=== PATIENT | female | born 2000 | race Two or more races ===

== ENCOUNTER 2023-07-31 16:38 | Observation (INO) | payer MEDICAID, OTHER ==
[2023-07-31] MEDS ORDERED: PREN-96 PO (18:15)
== END 2023-07-31 18:22 | disposition home or self-care (01) ==
LOC: LDRP 16:38
PROVIDERS: ADMIT Obstetrics & Gynecology; ATTEND Obstetrics & Gynecology
DX: O24.419 Gestational diabetes mellitus in pregnancy, unspecified control (principal); Z3A.39 39 weeks gestation of pregnancy; Z91.018 Allergy to other foods
CPT/HCPCS: 59025; 76818; 81002; 82948; 82962; 94760; G0378

== ENCOUNTER 2023-08-07 12:10 | Observation (INO) | payer MEDICAID ==
[~2023-08-07 12:10] MED LIST: PREN-96 PO
== END 2023-08-07 13:25 | disposition home or self-care (01) ==
LOC: LDRP 12:10 → UNDOADMOB 12:10 → LDRP 12:12 → UNDODISOB 13:25
PROVIDERS: ADMIT Obstetrics & Gynecology; ATTEND Obstetrics & Gynecology
DX: O24.419 Gestational diabetes mellitus in pregnancy, unspecified control (principal); Z3A.36 36 weeks gestation of pregnancy
CPT/HCPCS: 59025; 76818; 81002; 82948; 82962; 94760; G0378

== ENCOUNTER 2023-08-14 07:51 | Observation (INO) | payer MEDICAID ==
[~2023-08-14] VITALS: Ht 165.1 cm; Wt 117.0 kg
[2023-08-14] MEDS ORDERED: NIF10C PO (09:19)
== END 2023-08-14 09:30 | disposition home or self-care (01) ==
LOC: LDRP 07:58 → UNDOADMOB 07:58 → LDRP 08:03
PROVIDERS: ADMIT Obstetrics & Gynecology; ATTEND Obstetrics & Gynecology
DX: O24.419 Gestational diabetes mellitus in pregnancy, unspecified control (principal); Z3A.37 37 weeks gestation of pregnancy
CPT/HCPCS: 59025; 76818; 81002; 82948; 94760; G0378

== ENCOUNTER 2023-08-16 13:00 | Observation (INO) | payer MEDICAID | END 2023-08-16 17:37 | disposition home or self-care (01) | LOC: LDRP 13:00 | PROVIDERS: ADMIT Obstetrics & Gynecology; ATTEND Obstetrics & Gynecology | DX: O24.419 Gestational diabetes mellitus in pregnancy, unspecified control (principal); Z3A.37 37 weeks gestation of pregnancy | CPT/HCPCS: 59025; 76818; 81002; 82948; 82962; 94760; G0378 ==

== ENCOUNTER 2023-08-20 08:05 | Observation (INO) | payer MEDICAID | END 2023-08-20 10:04 | disposition home or self-care (01) | LOC: LDRP 08:05 → UNDOADMOB 08:05 → LDRP 08:19 → UNDODISOB 10:04 | PROVIDERS: ADMIT Obstetrics & Gynecology; ATTEND Obstetrics & Gynecology | DX: O24.419 Gestational diabetes mellitus in pregnancy, unspecified control (principal); O26.893 Other specified pregnancy related conditions, third trimester; N89.8 Other specified noninflammatory disorders of vagina; Z3A.38 38 weeks gestation of pregnancy; Z91.018 Allergy to other foods | CPT/HCPCS: 59025; 76818; 81002; 82948; 82962; G0378 ==

== ENCOUNTER 2023-08-25 19:04 | Inpatient (IN) | payer MEDICAID ==
[~2023-08-25] VITALS: Ht 165.1 cm; Wt 117.9 kg
[2023-08-25] MEDS ORDERED: LIDOCAINE 2%HCL (LOCAL ANESTH.) INJ 20ML MDV IJ PRN (19:30)
[2023-08-25] MEDS ORDERED: NALBUPHINE HCL 10 MG/1ml INJECTION IV PRN (19:30)
[2023-08-25] MEDS ORDERED: ONDANSETRON HCL 4 MG/2 ML VIAL IV PRN (20:00)
[2023-08-25 20:09] LABS: Basophils # (auto) 0 10 ^3/uL (0-0.2); Basophils % (auto) 0.2 % (0.0-2.0); Eosinophils # (auto) 0 10 ^3/uL (0-0.8); Eosinophils % (auto) 0.5 % (0.0-7.0); Hematocrit 28.5 % (36.0-46.0); Hemoglobin 9.7 g/dL (12.2-16.2); Lymphocytes # (auto) 1.7 10 ^3/uL (0.4-5.4); Lymphocytes % (auto) 16.5 % (10.0-50.0); Mean Corpuscular Hemoglobin 27.3 pg (28.0-32.0); Mean Corpuscular Volume 80.3 fL (80.0-100.0); Monocytes # (auto) 0.5 10 ^3/uL (0-1.3); Monocytes % (auto) 4.7 % (0.0-12.0); Neutrophils # (auto) 7.9 10 ^3/uL (1.6-8.6); Neutrophils % (auto) 78.1 % (37.0-80.0); Red Blood Cells 3.55 10^6/uL (4.0-5.20); Red Cell Distribution Width 15.8 % (11.8-14.3); White Blood Cell 10.1 10^3/uL (4.4-10.8)
[2023-08-25] MEDS: LACTATED RINGER'S 1,000 ML IV SCH (20:26)
[2023-08-25 20:27] LABS: INR 0.93 (0.9-1.15); Partial Thromboplastin Time 26.2 SEC (24.5-34.5); Prothrombin Time 9.9 sec (9.3-11.8)
[2023-08-25 20:30] LABS: Alanine Aminotransferase 10 U/L (7-40); Albumin 3.5 g/dL (3.2-4.8); Alkaline Phosphatase 129 U/L (46-116); Anion Gap 10 (5-15); Aspartate Aminotransferase 11 U/L (13-40); Bilirubin, Total 0.3 mg/dL (0.2-1.0); Calcium 9.1 mg/dL (8.7-10.4); Carbon Dioxide 20 mmol/L (20-30); Chloride 108 mmol/L (98-107); Glucose 98 mg/dL (74-106); Potassium 3.5 mmol/L (3.5-5.1); Sodium 138 mmol/L (136-145); Total Protein 6.3 g/dL (5.7-8.2)
[2023-08-25 20:31] LABS: BUN/Creatinine Ratio 8.8 (10.0-20.0); Blood Urea Nitrogen < 5 mg/dL (9-23)
[2023-08-25 20:34] LABS: Urine Bacteria FEW /hpf (None Seen); Urine Blood Negative /uL (Negative); Urine Clarity Turbid (Clear); Urine Color Yellow (Yellow); Urine Mucus FEW (None Seen); Urine Protein, UAD 1+ (Negative); Urine Specific Gravity 1.032 (1.001-1.035); Urine Urobilinogen Normal (Negative); Urine WBC 7 /hpf (0 - 5); Urine pH 5.5 (5.0-9.0)
[2023-08-25 20:47] LABS: Amphetamine Screen, Urine Neg (NEGATIVE); Barbiturate Scree,Urine Neg (NEGATIVE); Benzodiazephine Screen, Urine Neg (NEGATIVE); Cannabinoid Screen, Urine Neg (NEGATIVE); Cocaine Screen, Urine Neg (NEGATIVE); Opiate Scree,Urine Neg (NEGATIVE); Phencyclidine Screen, Urine Neg (NEGATIVE)
[2023-08-25] MEDS: miSOPROStol 50 MCG per PRE-CUT 1/2 TAB PO PRN (21:00)
[2023-08-25] MEDS ORDERED: ACCU-CHEK COMFORT CURVE STRIP VI SCH (22:00)
[2023-08-25] MEDS ORDERED: PENICILLIN G POTASSIUM 2,500,000 UNITS in D5W 5% 50 ML IV SCH (23:30)
[2023-08-26] MEDS ORDERED: TERBUTALINE SULFATE 1 MG/ML 1ML VIAL SC PRN (10:00)
[2023-08-26] MEDS ORDERED: LACT. RINGERS/OXYTOCIN 20UNITS 500 ML IV ONE ×2 (10:00→10:30)
[2023-08-26] MEDS: LACT. RINGERS/OXYTOCIN 20UNITS 1,000 ML IV SCH (15:11)
[2023-08-26] MEDS: PENICILLIN G POT 5MIL/D5 50ML 50 ML IV ONE (15:52)
[2023-08-26] MEDS ORDERED: ePHEDrine SULFATE 50 MG/ML AMP IV ONE (16:30)
[2023-08-26] MEDS: PHISODERM TOP SOLN 240ML BTL TOP PRN (17:20)
[2023-08-26] MEDS: DERMOPLAST 60ML BOTTLE TOP PRN (17:20)
[2023-08-26] MEDS: WITCH HAZEL-GLYCERIN PAD TOP PRN (17:20)
[2023-08-26] MEDS: ROPIVACAINE HCL 200 ML ONE (17:21)
[2023-08-26] MEDS ORDERED: D5W/LACTATED RINGERS 1,000 ML IV SCH (18:45)
[2023-08-26] MEDS ORDERED: SODIUM CHLORIDE 0.9% 1,000 ML IUPC ONE (18:45)
[2023-08-26] MEDS ORDERED: SODIUM CHLORIDE 0.9% 300 ML IUPC ONE (18:45)
[2023-08-26] MEDS ORDERED: METHYLERGONOVINE MALEATE 0.2 MG/ML AMP IM ONE ×2 (19:14→19:15)
[2023-08-26] MEDS: LACT. RINGERS/OXYTOCIN 20UNITS 500 ML IV ONE ×2 (19:44→20:04)
[2023-08-26] MEDS ORDERED: ACETAMINOPHEN 325 MG TAB PO PRN (20:30)
[2023-08-26] MEDS ORDERED: DOCUSATE SOD 100 MG CAP PO SCH (22:00)
[2023-08-26 22:10] VITALS: PULSE 73; RESP 14; O2SAT 96
[2023-08-26 23:00] VITALS: BP 130/63; PULSE 73; RESP 14; TEMP 98.4; O2SAT 96
[2023-08-26] MEDS: IBUPROFEN 600 MG TAB PO PRN (23:53)
[2023-08-27 03:00] VITALS: BP 115/65; PULSE 74; RESP 14; TEMP 98.1; O2SAT 97
[2023-08-27 07:03] VITALS: BP 145/85; PULSE 73; PULSE 77; RESP 14; RESP 17; TEMP 98.2; O2SAT 96; O2SAT 98
[2023-08-27 07:07] LABS: RPR Non Reactive (Non Reactive)
[2023-08-27] MEDS ORDERED: IBU600T PO (07:30)
[2023-08-27 10:35] VITALS: BP 122/72; PULSE 76; RESP 17; TEMP 98; O2SAT 97
[2023-08-27 13:43] LABS: Basophils # (auto) 0 10 ^3/uL (0-0.2); Eosinophils # (auto) 0 10 ^3/uL (0-0.8); Eosinophils % (auto) 0.4 % (0.0-7.0); Lymphocytes # (auto) 1.8 10 ^3/uL (0.4-5.4); Monocytes # (auto) 0.5 10 ^3/uL (0-1.3); Neutrophils # (auto) 6.6 10 ^3/uL (1.6-8.6); White Blood Cell 8.9 10^3/uL (4.4-10.8)
[2023-08-27 13:46] LABS: Basophils % (auto) 0.4 % (0.0-2.0); Hematocrit 27.2 % (36.0-46.0); Hemoglobin 9.1 g/dL (12.2-16.2); Lymphocytes % (auto) 20.1 % (10.0-50.0); Mean Corpuscular Hemoglobin 26.8 pg (28.0-32.0); Mean Corpuscular Hgb Conc. 33.3 g/dL (32.0-36.0); Mean Corpuscular Volume 80.4 fL (80.0-100.0); Monocytes % (auto) 5.6 % (0.0-12.0); Neutrophils % (auto) 73.5 % (37.0-80.0); Red Blood Cells 3.38 10^6/uL (4.0-5.20); Red Cell Distribution Width 15.8 % (11.8-14.3)
[2023-08-27 15:10] VITALS: BP 121/77; PULSE 80; RESP 17; TEMP 98.3; O2SAT 98
[2023-08-27 19:00] VITALS: BP 124/66; PULSE 89; RESP 16; TEMP 98.1; O2SAT 98
[2023-08-27] MEDS: MEASLES, MUMPS & RUBELLA VAC(MMRII) 0.5ML SC ONE (19:08)
[2023-08-27 20:15] VITALS: BP 124/66; PULSE 90; RESP 16; TEMP 98.1; O2SAT 98
[2023-08-28 19:06] LABS: Treponema pallidum Ab (FTA-Ab) Non Reactive (Non Reactive)
== END 2023-08-27 20:15 | disposition home or self-care (01) | DRG 560 ==
LOC: LDRP 19:04
PROVIDERS: ADMIT Obstetrics & Gynecology; ATTEND Obstetrics & Gynecology
PROC: 10E0XZZ Delivery of Products of Conception, External Approach (ICD-10-PCS; principal; 2023-08-26)
PROC: 3E0DXGC Introduction of Other Therapeutic Substance into Mouth and Pharynx, External Approach (ICD-10-PCS; 2023-08-26)
PROC: 3E0S3BZ Introduction of Anesthetic Agent into Epidural Space, Percutaneous Approach (ICD-10-PCS; 2023-08-26)
PROC: 00HU33Z Insertion of Infusion Device into Spinal Canal, Percutaneous Approach (ICD-10-PCS; 2023-08-26)
DX: O69.81X0 Labor and delivery complicated by cord around neck, without compression, not applicable or unspecified (principal); Z37.0 Single live birth; O24.420 Gestational diabetes mellitus in childbirth, diet controlled; E66.01 Morbid (severe) obesity due to excess calories; Z3A.40 40 weeks gestation of pregnancy; O99.214 Obesity complicating childbirth; O99.824 Streptococcus B carrier state complicating childbirth
CPT/HCPCS: 36415; 59025; 59409; 62282; 80053; 80307; 81001; 81002; 82948; 82962; 85025; 85610; 85730; 86592; 86803; 86850; 86900; 86901; 90472; 94760; 94762; 96360; 96361; 96365; 96366; 96372; G0378; J2540; J2590; J7060

== ENCOUNTER 2024-07-22 23:25 | Emergency (ER) | payer MEDICAID ==
[~2024-07-22] VITALS: Ht 165.1 cm; Wt 86.2 kg
[~2024-07-22 23:25] MED LIST changes: +IBU600T PO
--- NOTE | 2024-07-23 00:05 | ED.PDOC ---
History of Present Illness HPI Comments 23-year-old obese female is brought in by ambulance for bilateral upper quadrant abdominal that wraps around and radiates to her back, with associated nausea and vomiting. Endorses on sudden onset while taking a shower, this evening, after eating shrimp for dinner. No history of symptoms prior. This contained food content. Only history of gestational diabetes and morbid obesity and irregular periods following the at her, now, 11 month year old child, whom she breast feeds, currently. Vital stable and within normal limits. She was given 4 mg of Zofran and 1 g of Tylenol via IV access, with moderate improvement. No endorsement of recent ailments, sick contact, travel, ingestion of spoiled foods, or exposure to substances. She is sexually active but denies being , currently. Denies any bloody or bilious vomitus, diarrhea, urinary symptoms, fever, or chills. Chief Complaint: Abdominal Pain Time Seen by MD: 23:50 Reviewed Notes: Nurses Notes, Inspector Rag Sorting Notes, Medications, Allergies Allergies: Coded Allergies: Pineapple (Verified Allergy, Intermediate, 08/14/23) Home Meds Active Scripts Ibuprofen Micronized (MOTRIN TABLET) 600 Mg Tb, 600 MG PO Q6HP PRN, #30 TAB Prov:MEJIA TUCKER DO 08/27/23 Reported Medications Vit W/ Ferrous Fumara ( One Daily) Daily Tab, 1 TAB PO DAILY, #90 TAB 3 Refills 07/31/23 Information Source: Patient, Emergency Med Personnel Mode of Arrival: EMS Severity: Moderate Timing: Hours Duration: Since onset Prehospital treatment: 12 Lead EKG, Dress Cap Maker, Pain Meds (1G of Tylenol IV), Treatment (4 mg of Zofran) Past Medical History Past Medical History (Other): Gestational diates obesity Irregular periods Surgical History: Denies all surgeries SPIDER ASSEMBLER History: Denies all SPIDER ASSEMBLER Hx Family History Family History: Unknown Social History Smoker: Non-Smoker Alcohol: Denies ETOH Use Drugs: Denies Drug Use Lives In: Home All Other Systems: Reviewed and Negative (Comprehensive review of systems are negative unless otherwise stated in HPI) Physical Exam General Appearance: No Apparent Distress, Obese HEENT: Normal ENT Inspection, Pharynx Normal, TMs Normal Neck: Full Range of Motion, Non-Tender, Normal, Normal Inspection Respiratory: Chest Non-Tender, Lungs Clear, No Accessory Muscle Use, No Respiratory Distress, Normal Breath Sounds Cardiovascular: No Edema, No JVD, No Murmur, No Gallop, Normal Peripheral Pulses, Regular Rate/Rhythm Breast Exam: Deferred Gastrointestinal: LUQ (Tenderness), No Organomegaly, No Pulsatile Mass, Normal Bowel Sounds, RUQ (Tenderness), Soft, Tenderness (Diffuse tenderness in bilateral upper quadrants) Genitalia: Deferred Pelvic: Deferred Rectal: Deferred Extremities: No calf tenderness, Normal capillary refill, Normal inspection, Normal range of motion, Non-tender, No pedal edema Musculoskeletal : Apperance: Normal Neurologic: Alert, hemmer automatic II-XII nml as Tested, No Motor Deficits, Normal Affect, Normal Mood, No Sensory Deficits Cerebellar Function: Normal Reflexes: Normal Skin: Dry, Normal Color, Warm Lymphatic: No Adenopathy Was a procedure done? Was a procedure done?: No Differential Dx Considerations may include: Gastritis, gastroenteritis, , GERD, cholelithiasis, cholelithiasis, appendicitis, spoiled food, , ectopic , viral syndrome, among others X-Ray, Labs, Meds, VS Vital Signs Date Time Temp Pulse Resp B/P (MAP) Pulse Ox O2 Delivery O2 Flow Rate FiO2 07/22/24 23:33 98.2 103 18 123/81 (95) 97 98.2 Lab Test 07/22/24 23:58 Range/Units White Blood Count 13.0 H 4.4-10.8 10^3/uL Red Blood Count 4.51 4.0-5.20 10^6/uL Hemoglobin 12.3 12.2-16.2 g/dL Hematocrit 36.8 36.0-46.0 % Mean Corpuscular Volume 81.6 80.0-100.0 fL Mean Corpuscular Hemoglobin 27.3 L 28.0-32.0 pg Mean Corpuscular Hemoglobin Concent 33.5 32.0-36.0 g/dL Red Cell Distribution Width 15.1 H 11.8-14.3 % Platelet Count 262 140-450 10^3/uL Mean Platelet Volume 8.8 6.9-10.8 fL Neutrophils (%) (Auto) 75.6 37.0-80.0 % Lymphocytes (%) (Auto) 18.7 10.0-50.0 % Monocytes (%) (Auto) 4.3 0.0-12.0 % Eosinophils (%) (Auto) 0.9 0.0-7.0 % Basophils (%) (Auto) 0.5 0.0-2.0 % Neutrophils # (Auto) 9.8 H 1.6-8.6 10 ^3/uL Lymphocytes # (Auto) 2.4 0.4-5.4 10 ^3/uL Monocytes # (Auto) 0.6 0-1.3 10 ^3/uL Eosinophils # (Auto) 0.1 0-0.8 10 ^3/uL Basophils # (Auto) 0.1 0-0.2 10 ^3/uL Nucleated Red Blood Cells 0.0 % Sodium Level 141 136-145 mmol/L Potassium Level 4.1 3.5-5.1 mmol/L Chloride Level 107 98-107 mmol/L Carbon Dioxide Level 24 20-31 mmol/L Anion Gap 10 5-15 Blood Urea Nitrogen 12 9-23 mg/dL Creatinine 0.56 0.550-1.02 mg/dL Glomerular Filtration Rate Calc 131 >90 mL/min BUN/Creatinine Ratio 21.4 H 10.0-20.0 Serum Glucose 134 H 74-106 mg/dL Calcium Level 9.4 8.7-10.4 mg/dL Lipase 40 12-53 U/L Time of 1ST Reevaluation: 00:20 Reevaluation 1ST: Unchanged Patient Education/Counseling: Diagnosis, Treatment, Need For Follow Up Family Education/Counseling: No Family Present Additional Information Previous visits reviewed: August 25, 2023 encounter for induction The following tests were ordered, and results were reviewed by me: CT abdomen and pelvis without contrast, urinalysis, urine test, lipase, CBC, BMP Additional Information was gathered from interviewing the following independent historians: EMS I reviewed and agreed with the following test results read by other providers: None I discussed treatment and results with medical personnel and: patient Critical Care Note Critical Care Time?: No Stability Stability form required: No Heart Score Heart Score: Heart Score Response (Comments) Value History N/A 0 EKG N/A 0 Age N/A 0 Risk Factors N/A 0 Troponin N/A 0 Total 0 I personally scribed for WINNIE BUCKLEY ([email or web address]) on 07/23/24 at 00:05. Electronically submitted by Moises Dutton ([email or web address]). WINNIE BUCKLEY [facility] Jul 23, 2024 00:05
[2024-07-23 00:11] LABS: Basophils # (auto) 0.1 10 ^3/uL (0-0.2); Basophils % (auto) 0.5 % (0.0-2.0); Eosinophils # (auto) 0.1 10 ^3/uL (0-0.8); Eosinophils % (auto) 0.9 % (0.0-7.0); Hematocrit 36.8 % (36.0-46.0); Hemoglobin 12.3 g/dL (12.2-16.2); Lymphocytes # (auto) 2.4 10 ^3/uL (0.4-5.4); Lymphocytes % (auto) 18.7 % (10.0-50.0); Mean Corpuscular Hemoglobin 27.3 pg (28.0-32.0); Mean Corpuscular Hgb Conc. 33.5 g/dL (32.0-36.0); Mean Corpuscular Volume 81.6 fL (80.0-100.0); Monocytes # (auto) 0.6 10 ^3/uL (0-1.3); Monocytes % (auto) 4.3 % (0.0-12.0); Neutrophils # (auto) 9.8 10 ^3/uL (1.6-8.6); Neutrophils % (auto) 75.6 % (37.0-80.0); Platelet Count (auto) 262 10^3/uL (140-450); Red Blood Cells 4.51 10^6/uL (4.0-5.20); Red Cell Distribution Width 15.1 % (11.8-14.3)
[2024-07-23 00:20] LABS: Potassium 4.1 mmol/L (3.5-5.1); Sodium 141 mmol/L (136-145)
[2024-07-23 00:21] LABS: Anion Gap 10 (5-15); Calcium 9.4 mg/dL (8.7-10.4); Carbon Dioxide 24 mmol/L (20-31)
[2024-07-23 00:26] LABS: BUN/Creatinine Ratio 21.4 (10.0-20.0); Blood Urea Nitrogen 12 mg/dL (9-23); Lipase 40 U/L (12-53)
[2024-07-23 00:33] LABS: Chloride 107 mmol/L (98-107); Glucose 134 mg/dL (74-106)
[2024-07-23 02:59] LABS: Urine Bacteria None Seen /hpf (None Seen)
[2024-07-23] MEDS: ONDANSETRON HCL 4 MG/2 ML VIAL IV ONE (03:08)
[2024-07-23] MEDS: MORPHINE SULFATE 4 MG/ML SYR/VIAL IV ONE (03:09)
[2024-07-23 03:14] VITALS: TEMP 98.2
[2024-07-23 03:20] VITALS: PULSE 77; RESP 16; O2SAT 98
[2024-07-23 03:31] LABS: Urine Blood Negative /uL (Negative); Urine Clarity Clear (Clear); Urine Color Yellow (Yellow); Urine Mucus FEW (None Seen); Urine Protein, UAD TRACE (Negative); Urine Specific Gravity 1.042 (1.001-1.035); Urine Squamous Epithelial Cell FEW /hpf (<5); Urine Urobilinogen 3 mg/dL (Negative); Urine WBC 4 /HPF (0-5)
--- NOTE | 2024-07-23 04:02 | DVH ---
Exam: CT CT AB PEL WO CON-NO ORAL OR IV History: abd pain Comparison Study: None Technique: Multidetector spiral CT of the abdomen was performed from lung bases to pubic symphysis. I maging was performed without IV contrast. Axial, coronal and sagittal multiplanar reformats were obta ined from the axial data set by the technologist. Radiation Dose : 1. Abdomen/Pelvis: CTDIvol 25.85 mGy, DLP 1732.11 mGy*cm. Findings: Evaluation of solid organs is limited due to lack of intravenous contrast use. Lung Bases: No acute or significant lung base finding. Normal heart size. No pleural or pericardial effusion. Liver: The liver is normal in size. No focal lesions. Gallbladder and Biliary Tree: Cholelithiasis. Spleen: Unremarkable Pancreas: The pancreas is grossly normal in appearance. Adrenal Glands: Unremarkable Kidneys: Kidneys are grossly normal without calculi or hydronephrosis. Bladder: Grossly unremarkable for degree of distention. Bowel: The stomach is grossly normal in appearance. Small bowel and colon are normal in caliber and d istribution. The appendix is normal. Ascites: Absent Lymphadenopathy: No mesenteric, retroperitoneal or periportal lymphadenopathy. Abdominal Wall and Mesentery: Unremarkable. Vasculature: The visualized abdominal aorta is normal in size and caliber. Evaluation of abdominal a nd pelvic vessels is limited due to lack of intravenous contrast. Pelvic Organs: Unremarkable. Trace likely physiologic endometrial fluid. Musculoskeletal: No aggressive focal bony lesions, acute fractures or dislocation. IMPRESSION: 1. No acute abdominal or pelvic findings. 2. Cholelithiasis. Radiation optimization: All CT scans at this facility use at least one of these dose optimization medina hniques: automated exposure control mA and/or kV adjustment per patient size (includes targeted exam s where dose is matched to clinical indication) or iterative reconstruction.
[2024-07-23 05:22] VITALS: BP 105/53; PULSE 63; RESP 16; O2SAT 97
== END 2024-07-23 05:38 | disposition home or self-care (01) ==
LOC: EDUNIT# 23:25 → EDBD 23:25 → ER 23:30
DX: R10.11 Right upper quadrant pain (principal); R10.12 Left upper quadrant pain; E66.01 Morbid (severe) obesity due to excess calories; Z68.31 Body mass index [BMI] 31.0-31.9, adult; Z87.898 Personal history of other specified conditions
CPT/HCPCS: 36415; 74176; 80048; 81001; 81025; 83690; 85025; 96374; 96375; 99285; J2270; J2405